=== PATIENT | female | born 2000 | race Caucasian/White ===

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

== ENCOUNTER 2018-08-27 09:16 | Emergency (ER) | payer MEDICAID ==
[~2018-08-27] VITALS: Ht 149.9 cm; Wt 80.7 kg
[2018-08-27 09:33] VITALS: BP 132/76; Ht 149.9 cm; Wt 80.7 kg
== END 2018-08-27 11:17 | disposition home or self-care (01) ==
LOC: ED 09:16
DX: J06.9 Acute upper respiratory infection, unspecified (principal)
CPT/HCPCS: Q0092

== ENCOUNTER 2020-08-18 05:57 | Emergency (ER) | payer MEDICAID ==
[~2020-08-18] VITALS: Ht 149.9 cm; Wt 90.7 kg
[2020-08-18 06:09] VITALS: Ht 149.9 cm; Wt 90.7 kg
[2020-08-18 09:46] LABS: BASOPHIL % 0.5 % (0.2-1.3); PLATELET COUNT 383 x10^3mcL (179-408)
[2020-08-18 09:49] LABS: UA SPECIFIC GRAVITY 1.025 (1.005-1.035); microscopic required? YES; urine erythrocyte 1+ (NEGATIVE)
[2020-08-18 11:38] LABS: ALBUMIN 4.1 g/dL (3.4-5.0); ALKALINE PHOSPHATASE 101 U/L (46-116); ALT/SGPT 53 U/L (14-59); AST/SGOT 22 U/L (15-37); BILIRUBIN TOTAL 0.74 mg/dL (0.20-1.00); CALCIUM 8.9 mg/dL (8.5-10.1); CARBON DIOXIDE 23.4 mmol/L (21-32); CHLORIDE SERUM 105 mmol/L (98-107); CREATININE SERUM 0.9 mg/dL (0.6-1.0); GFR1 > 60 mL/min; GLUCOSE SERUM 116 mg/dL (74-106); LIPASE 98 IU/L (73-393); SODIUM SERUM 142 mmol/L (136-145); TOTAL PROTEIN, SERUM 7.9 g/dL (6.4-8.2)
[2020-08-18 12:17] VITALS: BP 120/78
== END 2020-08-18 12:17 | disposition home or self-care (01) ==
LOC: ED 05:57
PROVIDERS: Specialist
DX: F45.8 Other somatoform disorders (principal); R10.2 Pelvic and perineal pain
CPT/HCPCS: J1885; Q0162